=== PATIENT | male | born 1950 | race Caucasian/White ===

== ENCOUNTER → 2017-07-29 11:29 | Outpatient (CLI) | payer MEDICARE, OTHER, SELFPAY ==
[2017-07-29 13:23] LABS: Albumin 4.7 g/dL (3.5-5.0); Alkaline Phosphatase 88 U/L (38-126); Estimated Glomerular Filt Rate > 60.0 mL/min (>60); HEMOLYSIS < 15 (0-50)
[2017-07-29 15:22] LABS: Alanine Aminotransferase 74 IU/L (21-72); Albumin Globulin Ratio 1.4 (1.0-2.8); Aspartate Aminotransferase 52 IU/L (17-59); BUN Creatinine Ratio 31.1 (6-22); Blood Urea Nitrogen 28 mg/dL (9-20); Calcium 9.7 mg/dL (8.4-10.2); Carbon Dioxide 33 mmol/L (22-32); Chloride 96 mmol/L (98-107); Cholesterol 208 mg/dL (140-199); Globulin 3.3 g/dL (1.7-4.1); Glucose 95 mg/dL (80-110); HDL Cholesterol 42 mg/dL (40-60); LDL Cholesterol Calculated 103 mg/dL (<100); Sodium 141 mmol/L (137-145); Triglycerides 317 mg/dL (35-150)
== END ==
PROVIDERS: PCP Internal Medicine; Visit Provider Internal Medicine
DX: E78.00 Pure hypercholesterolemia, unspecified (principal); I10 Essential (primary) hypertension; K75.81 Nonalcoholic steatohepatitis (NASH); D64.9 Anemia, unspecified
CPT/HCPCS: 36415; 80053; 80061

== ENCOUNTER → 2017-08-02 09:05 | Outpatient (CLI) | payer MEDICARE, OTHER, SELFPAY | PROVIDERS: PCP Internal Medicine; Visit Provider Urology | DX: R97.20 Elevated prostate specific antigen [PSA] (principal) | CPT/HCPCS: 36415; 84153 ==

== ENCOUNTER → 2017-09-09 14:58 | Outpatient (CLI) | payer MEDICARE, OTHER, SELFPAY ==
--- NOTE | 2017-09-09 | DI.MRI.S_ITS ---
PROCEDURE: MR HAND LT WO CON INDICATIONS: Left finger pain of the 5th digit. TECHNIQUE: Noncontrast coronal T1 spin echo and T2 fast spin echo with fat saturation, axial proton density fast spin echo and T2 fast spin echo with fat saturation, sagittal T1 spin echo and STIR through the hand and fingers. COMPARISON: None. FINDINGS: Image quality: There is inhomogeneous fat saturation. Bones: There is joint space narrowing at the 5th proximal interphalangeal joint with mild subchondral edema and cystic change. There is slight ulnar sided and dorsal deviation. There is associated attenuation of the ulnar collateral ligament and thickening of the radial collateral ligament. No complete disruption. The volar plate appears grossly intact. No definite bone contusions or fractures. Soft tissues: The visualized flexor and extensor tendons appear intact. There is mild peritendinous edema along the flexor tendons including within the carpal tunnel. No definite thickening of the overlying retinaculum. Visualized muscles demonstrate normal bulk and internal signal. No intramuscular masses identified. No ganglion cysts. IMPRESSION: 1. Attenuated appearance of the ulnar collateral ligament at the 5th proximal interphalangeal joint and thickening of the radial collateral ligament. Findings likely represent sequelae of prior trauma or postsurgical change. There is associated slight ulnar sided and dorsal deviation. 2. 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 3. Mild peritendinous edema along the flexor tendons compatible with peritendinitis including within the carpal tunnel. Recommend correlation clinically for possible carpal tunnel syndrome. Dictated by: Jarrod Pearson M.D. on 09/10/2017 at 17:17 Approved by: Jarrod Pearson M.D. on 09/10/2017 at 17:26
== END ==
PROVIDERS: PCP Internal Medicine; Visit Provider Orthopaedic Surgery
DX: M19.042 Primary osteoarthritis, left hand (principal); M79.645 Pain in left finger(s)
CPT/HCPCS: 73218

== ENCOUNTER → 2018-02-10 09:26 | Outpatient (CLI) | payer MEDICARE, OTHER, SELFPAY ==
[2018-02-10 11:10] LABS: Alanine Aminotransferase 49 IU/L (21-72); Albumin 4.7 g/dL (3.5-5.0); Albumin Globulin Ratio 1.7 (1.0-2.8); Alkaline Phosphatase 67 U/L (38-126); Aspartate Aminotransferase 46 IU/L (17-59); BUN Creatinine Ratio 14.4 (6-22); Blood Urea Nitrogen 13 mg/dL (9-20); Calcium 9.5 mg/dL (8.4-10.2); Carbon Dioxide 29 mmol/L (22-32); Chloride 101 mmol/L (98-107); Cholesterol 189 mg/dL (140-199); Estimated Glomerular Filt Rate > 60.0 mL/min (>60); Globulin 2.7 g/dL (1.7-4.1); Glucose 98 mg/dL (80-110); HDL Cholesterol 41 mg/dL (40-60); HEMOLYSIS < 15 (0-50); LDL Cholesterol Calculated 110 mg/dL (<100); Sodium 143 mmol/L (137-145); Total Protein 7.4 g/dL (6.3-8.2); Triglycerides 192 mg/dL (35-150)
[2018-02-10 11:12] LABS: Potassium 5.9 mmol/L (3.4-5.1)
== END ==
PROVIDERS: PCP Internal Medicine; Visit Provider Internal Medicine
DX: E78.00 Pure hypercholesterolemia, unspecified (principal); K75.81 Nonalcoholic steatohepatitis (NASH)
CPT/HCPCS: 36415; 80053; 80061

== ENCOUNTER → 2018-04-08 13:25 | Outpatient (CLI) | payer MEDICARE, OTHER, SELFPAY ==
[2018-04-08 14:35] LABS: Blood Urea Nitrogen 13 mg/dL (9-20); Calcium 9.1 mg/dL (8.4-10.2); Carbon Dioxide 29 mmol/L (22-32); Chloride 102 mmol/L (98-107); Estimated Glomerular Filt Rate > 60.0 mL/min (>60); Glucose 89 mg/dL (80-110); HEMOLYSIS < 15 (0-50); Potassium 4.2 mmol/L (3.4-5.1); Sodium 139 mmol/L (137-145)
== END ==
PROVIDERS: PCP Internal Medicine; Visit Provider Internal Medicine
DX: I10 Essential (primary) hypertension (principal)
CPT/HCPCS: 36415; 80048

== ENCOUNTER → 2018-10-03 12:39 | Outpatient (CLI) | payer MEDICARE, OTHER, SELFPAY ==
[2018-10-03 13:15] LABS: Add Manual Diff / Slide Review NO; Basophils Absolute Auto 0 /uL (0-100); Basophils Percent Auto 0.6 % (0-2); Eosinophils Absolute Auto 100 /uL (0-450); Eosinophils Percent Auto 2.5 % (2-4); Hematocrit 42.9 % (41-53); Hemoglobin 14.5 g/dL (13.5-17.5); Lymphocytes Absolute Auto 1600 /uL (1100-4500); Lymphocytes Percent Auto 26.7 % (25-40); Mean Corpuscular HGB Conc 33.9 % (30-36); Mean Corpuscular Volume 88.4 fL (80-100); Monocytes Absolute Auto 500 /uL (0-900); Monocytes Percent Auto 8.7 % (3-14); Neutrophils Absolute Auto 3600 /uL (1500-7000); Neutrophils Percent Auto 61.5 % (50-75); Platelet Count 224 X10^3/uL (150-400); Red Blood Cell Count 4.85 X10^6/uL (4.5-5.9); Red Cell Distribution Width 14.5 % (11.6-14.8); White Blood Cell Count 5.9 X10^3/uL (4.5-11.0)
[2018-10-03 13:31] LABS: Alanine Aminotransferase 40 IU/L (21-72); Albumin 4.5 g/dL (3.5-5.0); Albumin Globulin Ratio 1.4 (1.0-2.8); Alkaline Phosphatase 79 U/L (38-126); Aspartate Aminotransferase 50 IU/L (17-59); BUN Creatinine Ratio 23.3 (6-22); Blood Urea Nitrogen 21 mg/dL (9-20); Calcium 9.3 mg/dL (8.4-10.2); Carbon Dioxide 29 mmol/L (22-32); Chloride 103 mmol/L (98-107); Estimated Glomerular Filt Rate > 60.0 mL/min (>60); Globulin 3.2 g/dL (1.7-4.1); Glucose 84 mg/dL (80-110); HEMOLYSIS < 15 (0-50); Potassium 4.1 mmol/L (3.4-5.1); Sodium 143 mmol/L (137-145); Total Protein 7.7 g/dL (6.3-8.2)
== END ==
PROVIDERS: PCP Internal Medicine; Visit Provider Internal Medicine
DX: K75.81 Nonalcoholic steatohepatitis (NASH) (principal); I10 Essential (primary) hypertension; G47.33 Obstructive sleep apnea (adult) (pediatric)
CPT/HCPCS: 36415; 80053; 85025

== ENCOUNTER → 2018-10-10 10:56 | Outpatient (CLI) | payer MEDICARE, OTHER, SELFPAY ==
--- NOTE | 2018-10-10 | DI.RAD.S_ITS ---
PROCEDURE: XR CERVICAL SPINE 2V OR 3V INDICATIONS: SPINAL PAIN TECHNIQUE: 3 view(s) of the cervical spine were acquired. COMPARISON: None. FINDINGS: Bones: No fractures or dislocations to the C7 level. The lateral masses of C1 appear intact on the odontoid view. No suspicious bony lesions. Loss of lordosis which could be related to muscle spasm, rigidity or simply positional. Grade 1 retrolisthesis C3-C4. Moderate C4-C5, C5-C6 and C6-C7 disc degeneration. Mild multilevel uncovertebral hypertrophy and mild mid and lower cervical spine bilateral facet joint arthropathy Soft tissues: No prevertebral soft tissue swelling. IMPRESSION: Loss of lordosis and multilevel degenerative change. Dictated by: Dez Dolan [facility] Interpreted: Jeancarlos Stevenson MD on 10/10/2018 at 11:40 Approved by: Jeancarlos Stevenson M.D. on 10/10/2018 at 14:33
--- NOTE | 2018-10-10 | DI.RAD.S_ITS ---
PROCEDURE: XR THORACIC SPINE 2V INDICATIONS: SPINAL PAIN TECHNIQUE: 3 views of the thoracic spine were acquired. COMPARISON: [facility], , CHEST 2VW, 10/28/2012, 15:07. FINDINGS: Bones: Multilevel mild lower thoracic spine compression fractures are present. Moderate multilevel disc degeneration, most notably involving the mid and inferior thoracic spine. Bones are diffusely osteopenic.. No suspicious bony lesions. 12 pairs of ribs are noted, and appear intact where visualized. Soft tissues: No paravertebral stripe thickening. IMPRESSION: 1. Vestigial ribs noted at the T12 level. 2. Mild multilevel lower thoracic spine compression fractures which are chronic and appear similar to prior lateral chest radiograph dated 10/28/12. 3. Multilevel disc degeneration and diffuse osteopenia. Dictated by: Dez Dolan [facility] Interpreted: Jeancarlos Stevenson MD on 10/10/2018 at 11:43 Approved by: Jeancarlos Stevenson M.D. on 10/10/2018 at 14:33
--- NOTE | 2018-10-10 | DI.RAD.S_ITS ---
PROCEDURE: XR LUMBAR SPINE 2-3V INDICATIONS: SPINAL PAIN TECHNIQUE: 3 views of the lumbar spine were acquired. COMPARISON: [facility], CR, SPINE LUMB MIN 4VW, 09/26/2010, 13:35. FINDINGS: Bones: 5 [id number] vertebrae are present. Mild levoscoliosis most notably and severe at the L3-L4 level. Moderate lower lumbar spine facet joint arthropathy. Trace multilevel retrolisthesis. Multilevel disc degeneration,. No vertebral body compression fractures. No suspicious bony lesions. Soft tissues: Overlying bowel gas pattern is normal. No suspicious soft tissue calcifications. IMPRESSION: Degenerative disc and facet disease. Dictated by: Dez LOPEZ Interpreted: Jeancarlos Stevenson MD on 10/10/2018 at 11:48 Approved by: Jeancarlos Stevenson M.D. on 10/10/2018 at 14:33
== END ==
PROVIDERS: PCP Internal Medicine; Visit Provider Chiropractor
DX: S13.101A Dislocation of unspecified cervical vertebrae, initial encounter (principal); S23.101A Dislocation of unspecified thoracic vertebra, initial encounter; S33.101A Dislocation of unspecified lumbar vertebra, initial encounter; M54.6 Pain in thoracic spine
CPT/HCPCS: 72040; 72070; 72100

== ENCOUNTER → 2019-01-14 10:08 | Outpatient (CLI) | payer MEDICARE, OTHER, SELFPAY ==
--- NOTE | 2019-01-14 | DI.RAD.S_ITS ---
PROCEDURE: FL BARIUM SWALLOW INDICATIONS: DYSPHAGIA COMPARISON: None. FINDINGS: Function: There is normal esophageal peristalsis. No elicited gastroesophageal reflux. There is normal transit of a calibrated barium tablet through the esophagus into the stomach. Morphology: Air-contrast images demonstrate normal mucosal morphology. Single contrast views show no esophageal strictures, extrinsic mass effects, or diverticula. Limited images of the stomach demonstrate normal appearance. IMPRESSION: Normal examination. Dictated by: Jeancarlos Stevenson M.D. on 01/14/2019 at 11:59 Approved by: Jeancarlos Stevenson M.D. on 01/14/2019 at 11:59
== END ==
PROVIDERS: PCP Internal Medicine; Referring Provider Orthopaedic Surgery; Visit Provider Internal Medicine
DX: M81.0 Age-related osteoporosis without current pathological fracture (principal); R13.10 Dysphagia, unspecified; M80.00XA Age-related osteoporosis with current pathological fracture, unspecified site, initial encounter for fracture
CPT/HCPCS: 74220; 77080; 77081

== ENCOUNTER → 2019-04-10 11:37 | Outpatient (CLI) | payer MEDICARE, OTHER, SELFPAY ==
[2019-04-10 13:17] LABS: Alanine Aminotransferase 38 IU/L (<50); Albumin 4.5 g/dL (3.5-5.0); Albumin Globulin Ratio 1.4 (1.0-2.8); Alkaline Phosphatase 66 U/L (38-126); Aspartate Aminotransferase 47 IU/L (17-59); Bilirubin Total 0.9 mg/dL (0.2-1.3); Blood Urea Nitrogen 15 mg/dL (9-20); Calcium 9.2 mg/dL (8.4-10.2); Carbon Dioxide 28 mmol/L (22-32); Chloride 104 mmol/L (98-107); Cholesterol 167 mg/dL (140-199); Estimated Glomerular Filt Rate > 60.0 mL/min (>60); Globulin 3.2 g/dL (1.7-4.1); Glucose 88 mg/dL (80-110); HDL Cholesterol 36 mg/dL (40-60); HEMOLYSIS < 15 (0-50); LDL Cholesterol Calculated 93 mg/dL (<100); Potassium 3.9 mmol/L (3.4-5.1); Sodium 141 mmol/L (137-145); Total Protein 7.7 g/dL (6.3-8.2); Triglycerides 188 mg/dL (35-150)
== END ==
PROVIDERS: PCP Internal Medicine; Referring Provider Internal Medicine; Visit Provider Internal Medicine
DX: I10 Essential (primary) hypertension (principal); E78.00 Pure hypercholesterolemia, unspecified; K75.81 Nonalcoholic steatohepatitis (NASH)
CPT/HCPCS: 36415; 80053; 80061

== ENCOUNTER → 2019-10-24 08:30 | Outpatient (CLI) | payer MEDICARE, OTHER, SELFPAY ==
[2019-10-24 10:37] LABS: Alanine Aminotransferase 48 IU/L (<50); Albumin 4.6 g/dL (3.5-5.0); Albumin Globulin Ratio 1.4 (1.0-2.8); Alkaline Phosphatase 80 U/L (38-126); Aspartate Aminotransferase 49 IU/L (17-59); Bilirubin Total 0.8 mg/dL (0.2-1.3); Bilirubin Unconjugated 0.8 mg/dL (0.0-1.1); Globulin 3.4 g/dL (1.7-4.1); HEMOLYSIS < 15 (0-50)
== END ==
PROVIDERS: PCP Internal Medicine; Referring Provider Internal Medicine; Visit Provider Internal Medicine
DX: K75.81 Nonalcoholic steatohepatitis (NASH) (principal)
CPT/HCPCS: 36415; 80076

== ENCOUNTER → 2020-04-20 14:22 | Outpatient (CLI) | payer MEDICARE, OTHER, SELFPAY ==
[2020-04-20 15:58] LABS: Add Manual Diff / Slide Review NO; Basophils Absolute Auto 0 /uL (0-100); Basophils Percent Auto 0.3 % (0-2); Eosinophils Absolute Auto 200 /uL (0-450); Eosinophils Percent Auto 1.9 % (2-4); Hematocrit 45.4 % (41-53); Hemoglobin 15.2 g/dL (13.5-17.5); Lymphocytes Absolute Auto 1900 /uL (1100-4500); Lymphocytes Percent Auto 17.1 % (25-40); Mean Corpuscular HGB Conc 33.5 % (30-36); Mean Corpuscular Hemoglobin 29.6 PG (26-34); Mean Corpuscular Volume 88.4 fL (80-100); Monocytes Absolute Auto 800 /uL (0-900); Monocytes Percent Auto 6.8 % (3-14); Neutrophils Absolute Auto 8200 /uL (1500-7000); Neutrophils Percent Auto 73.9 % (50-75); Platelet Count 217 X10^3/uL (150-400); Red Blood Cell Count 5.14 X10^6/uL (4.5-5.9); Red Cell Distribution Width 14.1 % (11.6-14.8); White Blood Cell Count 11.1 X10^3/uL (4.5-11.0)
[2020-04-20 16:20] LABS: Alanine Aminotransferase 41 IU/L (<50); Albumin 4.6 g/dL (3.5-5.0); Albumin Globulin Ratio 1.5 (1.0-2.8); Alkaline Phosphatase 66 U/L (38-126); Aspartate Aminotransferase 43 IU/L (17-59); BUN Creatinine Ratio 16.3 (6-22); Blood Urea Nitrogen 16 mg/dL (9-20); Calcium 9.2 mg/dL (8.4-10.2); Carbon Dioxide 30 mmol/L (22-32); Chloride 104 mmol/L (98-107); Cholesterol 206 mg/dL (140-199); Estimated Glomerular Filt Rate > 60.0 mL/min (>60); Glucose 85 mg/dL (80-110); HDL Cholesterol 42 mg/dL (40-60); HEMOLYSIS < 15 (0-50); LDL Cholesterol Calculated 128 mg/dL (<100); Potassium 3.9 mmol/L (3.4-5.1); Sodium 139 mmol/L (137-145); Total Protein 7.6 g/dL (6.3-8.2); Triglycerides 178 mg/dL (35-150)
== END ==
PROVIDERS: PCP Internal Medicine; Referring Provider Internal Medicine; Visit Provider Internal Medicine
DX: I10 Essential (primary) hypertension (principal); E78.00 Pure hypercholesterolemia, unspecified; G47.33 Obstructive sleep apnea (adult) (pediatric); K75.81 Nonalcoholic steatohepatitis (NASH)
CPT/HCPCS: 36415; 80053; 80061; 85025

== ENCOUNTER → 2020-08-03 11:45 | Outpatient (CLI) | payer MEDICARE, OTHER, SELFPAY ==
[2020-08-04 08:09] LABS: PSA Free % 23.8 % (.); PSA, Total 5.3 ng/mL (0.0-4.0)
== END ==
PROVIDERS: PCP Internal Medicine; Referring Provider Urology; Visit Provider Urology
DX: R97.20 Elevated prostate specific antigen [PSA] (principal)
CPT/HCPCS: 36415; 84153; 84154

== ENCOUNTER → 2020-11-18 15:03 | Outpatient (CLI) | payer MEDICARE, OTHER, SELFPAY ==
[2020-11-18 17:13] LABS: COVID19 -Nasal RAPID Negative (Negative)
== END ==
PROVIDERS: PCP Internal Medicine; Visit Provider Surgery
DX: Z20.822 Contact with and (suspected) exposure to COVID-19 (principal); Z01.812 Encounter for preprocedural laboratory examination
CPT/HCPCS: 87635; C9803

== ENCOUNTER 2020-11-21 09:00 | Day surgery (SDC) | payer MEDICARE, OTHER, SELFPAY ==
--- NOTE | 2020-11-21 | PATH_ITS ---
[facility] Accession Number: [id number] . 01 Material submitted: . PART A: colon - DESCENDING COLON POLYP PART B: rectum - RECTAL POLYP . 02 Diagnosis: A. Descending Colon Polyp: Tubular adenoma. . B. Rectal Polyp: Portions of hyperplastic polyp x 3. MRV 11/24/2020 1357 Local . 02 Electronically signed: . Jacquelyn Tay MD, Pathologist NPI- [id number] . 01 Gross description: . Part A: DESCENDING COLON POLYP: Received in formalin is 1 fragment(s) of early, soft tissue measuring 0.3 x 0.2 x 0.1 cm submitted entirely in 1 cassette(s) Part B: RECTAL POLYP: Received in formalin are 3 fragment(s) of early, soft tissue measuring 0.5 x 0.2 x 0.1 cm to 0.1 x 0.1 x 0.1 cm submitted entirely in 1 cassette(s) /MARIA M 11/22/2020 0422 Local . 02 Pathologist provided ICD-10: Z12.11, Z86.010 . 02 CPT . 489174, 170027 Performed at: 01 [facility] [address] [facility] [place] [facility] [place], [place], [place] [id number] MD Jarrod Lua MD Phone: [phone] Performed at: [facility] [address] [place], [place] [id number] MD Annemarie Gonzalez MD Phone: [phone]
[2020-11-21 09:41] VITALS: BP 140/80; PULSE 59; RESP 16; TEMP 36.2; O2SAT 99; BMI 28.9
[2020-11-21] MEDS: LACTATED RINGERS 1,000 ML 42 ML IV (09:51)
--- NOTE | 2020-11-21 10:00 | PM.HP.1 ---
History of Present Illness History of Present Illness Date Patient Seen: 11/21/20 Time Patient Seen: 10:00 Chief complaint: SDC Narrative: The patient presents for colorectal sreening. Previous colonoscopy 5 years ago demonstrated benign polyps. No personal or family history of colon cancer. On further history denies any recent gastrointestinal symptoms. No nausea, vomiting, abdominal pain, loss of appetite, unexplained weight loss, change in bowel habits, diarrhea, constipation, melena, hematochezia, or bright red blood per rectum. Patient History Medical History Central sleep apnea Excessive daytime sleepiness Hyperlipidemia Hypertension Obstructive sleep apnea of adult Snoring Family & Social History Social History: household members spouse Tobacco & Substance use: Smoking Status Never smoker alcohol intake frequency holiday/special occasion Substance Use Type does not use Meds Home Medications and Allergies Home Medications Medication Instructions Recorded Confirmed Type metoprolol succinate 50 mg 50 mg OR Q DAY #0 10/25/15 11/21/20 History tablet,extended release 24 hr (Toprol XL) rosuvastatin 10 mg tablet (Crestor) 5 mg OR HS #0 10/25/15 11/21/20 History Respironics Dreamstation CPAP #1 ea 10/01/18 05/24/20 History aspirin 81 mg tablet,delayed 81 mg PO DAILY 05/24/20 11/21/20 History release (Adult Low Dose Aspirin) tadalafil 5 mg tablet (Cialis) 5 mg PO DAILY 05/24/20 11/21/20 History sodium,potassium,mag sulfates 17.5 See Rx Instructions PO .COMPLEX 10/20/20 11/21/20 Rx gram-3.13 gram-1.6 gram oral soln #354 ml (Suprep Bowel Prep Kit) Allergies Allergy/AdvReac Type Severity Reaction Status Date / Time morphine [MORPHINE] AdvReac Intermediate Verified 11/21/20 09:49 Exam Vital Signs (past 8 hours): - 11/21/20 09:41 Temperature 97.1 F L Pulse Rate 59 L Respiratory Rate 16 Blood Pressure 140/80 Pulse Oximetry 99 Oxygen Delivery Method Room Air Narrative Exam Narrative: Constitutional-he is oriented to person, place and time. No apparent distress Cardiovascular- regular rate, no peripheral edema Pulmonary-unlabored respiratory effort, no audible wheezing Abdominal-soft, non-tender, non-distended Musculoskeletal-no cyanosis or clubbing Neurological-nonfocal, normal strength throughout, Skin-warm and dry Assessment & Plan Assessment and plan (1) Personal history of colonic polyps: Status: Acute Assessment & Plan narrative: The patient requires colorectal screening and colonoscopy is recommended. Technical details were discussed. Risks, benefits, alternatives explained. Risks including but not limited to myocardial infarction, aspiration, bleeding, pain, missed lesion, incomplete examination, need for further radiographic studies, colonic perforation, and need for major abdominal surgery were discussed. All questions were answered to their satisfaction, and they are in agreement with this plan. Time Spent With Patient Critical Care time: I spent a total of [] minutes of critical care time on this patient's care today; this time is exclusive of procedural time.
[2020-11-21] MEDS: fentaNYL 250 MCG/5 ML INJ IV (10:12)
[2020-11-21] MEDS: MIDAZOLAM 5 MG/5 ML VIAL IV (10:12)
--- NOTE | 2020-11-21 10:30 | P.OP.COLON_ITS ---
Operative Date/Time/Diagnoses Date of procedure: 11/21/20 Time of procedure: 10:30 Pre-op diagnosis: Personal history of colonic polyps Post-op diagnosis: same Procedure & Clinicians Study performed: Colonoscopy Same procedure as scheduled: Yes Indications: Personal history of colonic polyps Surgeon: Asim Griffin Procedure Notes Procedure in detail: Medications: Conscious sedation using 5mg IV midazolam and 150mcg IV of fentanyl The history and physical was performed/updated and the patient is ASA class is 2. The procedure was discussed in detail with the patient. Potential risks complications including infection, bleeding, missed diagnosis, perforation, need for surgery, and were explained. Their questions were answered and informed consent was obtained. Patient was brought to the procedure room and placed standard monitoring equipment. The patient's vital signs were monitored continuously throughout the entire procedure. Prior to starting time-out was performed. The patient was placed in the left lateral recumbent position. Procedural sedation was administered. Examination began with a thorough inspection of the perianal area there was no evidence of fissures, fistulae, external hemorrhoids or cutaneous malignancy. The colonoscopy scope was then placed into the anal canal and was advanced to the cecum, which was identified by the ileocecal valve, the appendiceal orifice and the confluence of the taenia. The scope was then slowly withdrawn examining colon thoroughly in all directions, irrigating it of any residual stool. FINDINGS 1.decending colonic polyp 1 cm removed biopsy forceps 2.rectal polyp 5 mm removed with biopsy forceps The patient tolerated the procedure well. They will be discharged once criteria are met. The prep was of good/excellent quality. The withdrawl time was 9 min utes. The sedation time was 30 minutes. Specimen(s): other (descending, rectal ) Complications: none Impression: Colonic polyps Post-procedure Recommendations: Colonoscopy in 5 years Disposition: same day surgery
[2020-11-21 10:32] VITALS: BP 103/59; PULSE 59; RESP 12; TEMP 36.4; O2SAT 98
[2020-11-21 10:37] VITALS: BP 106/56; PULSE 58; RESP 14; O2SAT 96
[2020-11-21 10:42] VITALS: BP 112/61; PULSE 60; RESP 14; O2SAT 95
[2020-11-21 10:49] VITALS: BP 99/62; PULSE 58; RESP 13; O2SAT 95
[2020-11-21 10:54] VITALS: BP 128/71; PULSE 58; RESP 14; TEMP 36.5; O2SAT 98
== END 2020-11-21 11:07 | disposition home or self-care (01) ==
PROVIDERS: PCP Internal Medicine; Referring Provider Surgery; Visit Provider Surgery
PROC: 0DJD8ZZ Inspection of Lower Intestinal Tract, Via Natural or Artificial Opening Endoscopic (ICD-10-PCS; CPT 45378; principal; 2020-11-21 10:00)
DX: Z12.11 Encounter for screening for malignant neoplasm of colon (principal); Z86.010 Personal history of colon polyps; E78.5 Hyperlipidemia, unspecified; I10 Essential (primary) hypertension; G47.33 Obstructive sleep apnea (adult) (pediatric); D12.4 Benign neoplasm of descending colon; K62.1 Rectal polyp
CPT/HCPCS: 45380; 99152; 99153; J2250; J3010

== ENCOUNTER → 2021-05-21 13:48 | Outpatient (CLI) | payer MEDICARE, OTHER, SELFPAY ==
--- NOTE | 2021-05-21 13:50 | DI.RAD.S_ITS ---
PROCEDURE: XR FOOT LT MIN 3V INDICATIONS: Foot pain TECHNIQUE: 3 views of the foot were acquired. COMPARISON: None. FINDINGS: Bones: No fractures or dislocations. No suspicious bony lesions. Soft tissues: No tibiotalar joint effusion. Achilles tendon appears normal. IMPRESSION: Unremarkable left foot radiographs Approved by: Gary Khan M.D. on 05/21/2021 at 14:19
== END ==
PROVIDERS: PCP Internal Medicine; Referring Provider Physician Assistant; Visit Provider Physician Assistant
DX: M79.672 Pain in left foot (principal)
CPT/HCPCS: 73630

== ENCOUNTER 2022-05-09 20:39 | Emergency (ER) | payer MEDICARE, OTHER, SELFPAY ==
[2022-05-09 20:59] VITALS: BP 155/74; PULSE 74; RESP 16; TEMP 37.1; O2SAT 98; BMI 28.0
--- NOTE | 2022-05-09 21:14 | DI.RAD.S_ITS ---
PROCEDURE: XR HAND LT MIN 3V INDICATIONS: pain, swelling, question foreign body TECHNIQUE: The views of the left hand acquired. COMPARISON: None. FINDINGS: Bones: No fractures or dislocations. There is moderate degeneration at the 5th proximal interphalangeal joint. Carpal bones are normally aligned. No suspicious bony lesions. Soft tissues: There is a punctate density within the soft tissues of the 1st digit distally suggestive of a foreign body. Elsewhere, no other radiopaque foreign bodies identified. IMPRESSION: 1. Punctate density in the distal 1st digit suggestive of a punctate foreign body. 2. No additional radiopaque foreign bodies identified. 3. Moderate degeneration at the 5th PIP joint. Dictated by: Jarrod Pearson M.D. on 05/09/2022 at 22:39 Approved by: Jarrod Pearson M.D. on 05/09/2022 at 22:41
[2022-05-09 22:17] VITALS: BP 140/83; PULSE 74; RESP 17; TEMP 36.8; O2SAT 97
--- NOTE | 2022-05-10 01:15 | ED_ITS ---
HPI - Extremity Problem General Chief complaint: Extremity Problem,Nontraumatic Stated complaint: lt hand swelling, possible FB Time Seen by Provider: 05/09/22 21:14 Source: patient Mode of arrival: Ambulatory History of Present Illness HPI Narrative: 72-year-old male with hypertension and hyperlipidemia presents with a chief complaint of pain and swelling of the palm of his left hand and swelling of his left middle finger. About 3 weeks ago he had a puncture wound on the palmar aspect of his hand with a shard of glass that he was able to remove. He thought nothing of it until a few days later when he noticed some swelling on the palmar surface and finger. He presented to his primary care office and was given a shot of Rocephin followed by a week of Keflex. He had a complete resolution of symptoms until the past 24 hours or so when he started developing some pain, redness and swelling on the palmar aspect of his left hand overlying the same injury site. He presents tonight with some minimal swelling to his left middle finger and some pain. He is able to nearly make a fist but states it is starting to behave like it did last time when the infection began to present. He denies systemic complaints such as dizziness, weakness or lightheadedness. He has no fever, chills nor nausea or vomiting Related Data Home Medications Medication Instructions Recorded Confirmed metoprolol succinate 50 mg 50 mg OR Q DAY ##0 10/25/15 05/03/22 tablet,extended release 24 hr (Toprol XL) rosuvastatin 10 mg tablet (Crestor) 5 mg OR HS ##0 10/25/15 05/03/22 Respironics Dreamstation CPAP #1 ea 10/01/18 05/03/22 aspirin 81 mg tablet,delayed 81 mg PO DAILY 05/24/20 05/03/22 release (Adult Low Dose Aspirin) tadalafil 5 mg tablet (Cialis) 5 mg PO DAILY 05/24/20 05/03/22 Previous Rx's Medication Instructions Recorded doxycycline hyclate 100 mg tablet 100 mg PO BID #20 tabs 05/10/22 Allergies Allergy/AdvReac Type Severity Reaction Status Date / Time morphine [MORPHINE] AdvReac Intermediate Verified 05/03/22 14:52 Review of Systems Review of Systems Narrative: GENERAL: Denies chills, fatigue, malaise, fever, sweats. HEENT: Denies sinus pain, ear pain, sore throat, difficulty swallowing, dizziness. RESPIRATORY: Denies dyspnea, cough, wheezing, hemoptysis, sputum. CARDIOVASCULAR: Denies chest pain, palpitations, orthopnea, edema, GASTROINTESTINAL: Denies nausea, vomiting, abdominal pain, diarrhea, constipation, melena. : Denies dysuria, frequency, incontinence, hematuria, urinary retention. MUSCULOSKELETAL: See HPI SKIN: See HPI NEUROLOGIC: Denies weakness, headache, numbness, change in speech, confusion, seizures, incoordination. PSYCHIATRIC: No concerning psychosocial issues. 12 point review of systems is negative except for those stated above Patient History Medical History Central sleep apnea Excessive daytime sleepiness Hyperlipidemia Hypertension LUGO (nonalcoholic steatohepatitis) Obstructive sleep apnea of adult Snoring Social History marital status: household members: spouse lives independently: Yes occupational status: previously employed Smoking Status: Never smoker alcohol intake: current substance use type: does not use Smoking Status: Never smoker alcohol intake frequency: a few times a week Substance Use Type: does not use Exam Narrative Exam Narrative: GENERAL: [72] year old patient appears stated age. Well-developed patient, in mild distress. HEAD: Atraumatic. Normocephalic. EYES: Pupils equal round and reactive. Extraocular motions intact. No scleral icterus. No injection or drainage. ENT: Nose without bleeding, purulent drainage. Throat without erythema, tonsillar hypertrophy or exudate. Airway patent. NECK: Trachea midline. Non tender CARDIOVASCULAR: Regular rate and rhythm without murmurs, gallops, or rubs. RESPIRATORY: Clear to auscultation. Breath sounds equal bilaterally. No wheezes, rales, or rhonchi. GASTROINTESTINAL: Abdomen soft, non-tender, nondistended. EXTREMITIES: Minimal swelling, erythema and tenderness on the palmar surface of left hand overlying the prior puncture site, over the 3rd MCP. There is some swelling on the flexor surface of the left middle finger and it is slightly held in flexion. He has very minimal if any pain upon passive extension of the finger. There is swelling but not fusiform. He does not have pain on palpation of the flexor tendon BACK: Nontender without deformity or crepitance. No flank tenderness. NEURO: AOx3. SKIN: No rash or erythema of visible areas Initial Vital Signs Initial Vital Signs: Vital Signs Temperature 98.7 F 05/09/22 20:59 Pulse Rate 74 05/09/22 20:59 Respiratory Rate 16 05/09/22 20:59 Blood Pressure 155/74 H 05/09/22 20:59 Pulse Oximetry 98 05/09/22 20:59 Oxygen Delivery Method Room Air 05/09/22 20:59 Course Orders Ordered: ED Orders 05/09/22 21:14 XR hand LT min 3V Stat Discontinued Medications Doxycycline Hyclate (Doxycycline Hyclate 100 Mg Tablet) 100 mg PO NOW ONE Stop: 05/10/22 02:13 Last Admin: 05/10/22 02:19 Dose: 100 mg Consultations Consultation #1: Discussed with Dr. Fairchild, on-call orthopedist. We have discussed the patient's recent history and physical exam as well as how he presents tonight. He does not have surgical findings at this time and given his response to antibiotics last time would prefer that I start him on a slightly more broad-spectrum, we discussed using doxycycline, and encouraged close follow-up with return precautions Vital Signs Vital signs: Vital Signs - 8 hr 05/09/22 20:59 05/09/22 22:17 05/10/22 01:16 Temperature 98.7 F 98.2 F Pulse Rate 74 74 Pulse Rate [Left Radial] 80 Respiratory Rate 16 17 Blood Pressure 155/74 H 140/83 Pulse Oximetry 98 97 Oxygen Delivery Method Room Air Room Air Discharge Plan Departure Patient Disposition: Home Clinical Impression: Cellulitis of finger of left hand Instructions: DI for Cellulitis -- Adult Activity Restrictions/Additional Instructions: *You have been diagnosed with [left hand cellulitis, possible very early flexor tenosynovitis. *What to do: *Please continue to take your regular medications as directed. [x ] New medication prescriptions sent to your pharmacy: [[facility] ] [ ] New medication written as a paper prescription [ ] No new medications given * please follow closely with Dr. Fairchild at [facility]. Please call the office later this morning, let them know that you were seen in the emergency department and we would like you seen in follow-up. I will electronically transmitted a copy of today's note *Return to Emergency Department if you should have any new, worsening or concerning symptoms, such as [fever greater than 101 F, shaking chills, worsening pain, persistent vomiting or other bothersome symptoms] Prescriptions: New doxycycline hyclate 100 mg tablet 100 mg PO BID Qty: 20 0RF No Action rosuvastatin [Crestor] 10 MG tablet 5 mg OR HS Qty: 0 metoprolol succinate [Toprol XL] 50 MG tablet extended release 24 hr 50 mg OR Q DAY Qty: 0 (DME) Respironics Dreamstation CPAP Qty: 1 Dose Instruction: As directed Patient Comments: Pressure: 12-16 cmH2O DME: [facility] Rx Instructions: As directed tadalafil [Cialis] 5 mg tablet 5 mg PO DAILY aspirin [Adult Low Dose Aspirin] 81 mg tablet,delayed release (DR/EC) 81 mg PO DAILY Referrals: Dioni Oreilly MD [Primary Care Provider] - Guillermo Fairchild MD [Physician] - Stand Alone Forms: Patient Portal/API
[2022-05-10 01:16] VITALS: PULSE 80
[2022-05-10] MEDS: DOXYCYCLINE HYCLATE 100 MG TABLET PO (02:19)
[2022-05-10 02:25] VITALS: BP 151/71; PULSE 71; RESP 16; O2SAT 98
== END 2022-05-10 02:26 | disposition home or self-care (01) ==
PROVIDERS: Emergency Provider Emergency Medicine; PCP Internal Medicine
DX: L03.012 Cellulitis of left finger (principal)
CPT/HCPCS: 73130; 99283

== ENCOUNTER 2022-05-30 14:19 | Day surgery (SDC) | payer MEDICARE, OTHER, SELFPAY ==
[2022-05-25 14:36] VITALS: BMI 28.0
[2022-05-30] VITALS (8 sets, daily range): BP systolic 123–140; BP diastolic 72–84; PULSE 76–88; RESP 15–18; TEMP 36.8–37.1; O2SAT 95–99; BMI 28.0
[2022-05-30] MEDS: LACTATED RINGERS 1,000 ML 100 ML IV ×2 (14:56→16:07)
--- NOTE | 2022-05-30 15:28 | PM.PREOP ---
Pre-operative Note Interval Note History & Physical reviewed/Exam performed by Physician: Yes Changes to H&P: No
[2022-05-30] MEDS: CEFAZOLIN 2 GM/100 ML PREMIX 100 ML IV (15:45)
--- NOTE | 2022-05-30 16:01 | SUR.OPER ---
Supine on padded OR bed, head on pillow, arms secured on padded arm boards at <90 degrees abduction, legs uncrossed, safety belt at thigh, tape over blanket over lower legs.
[2022-05-30] MEDS: BUPIVACAINE 0.25% (PF) VIAL 30 ML INJ (16:08)
--- NOTE | 2022-05-30 17:06 | P.OP_ITS ---
Operative Date/Time/Diagnoses Date of procedure: 05/30/22 Time of procedure: 17:06 Pre-op diagnosis: Left inguinal hernia Post-op diagnosis: same Procedure & Clinicians Procedure: open left inguinal repair mesh Same procedure as scheduled: Yes Indications: symptomatic reducible left inguinal hernia Surgeon: Asim Mcwilliams Yes if Unassisted: Yes Anesthesia Type: General Operative Notes Findings: moderate size left indirect hernia containing bowel. No direct floor defect Estimated Blood Loss (mL): 20 Procedure in detail: The patient was placed supine on the table and bilateral lower extremity compression devices were applied. Anesthesia was induced they were intubated with an LMA and received Ancef. A time-out was performed. They were prepped and draped in sterile fashion. The left external inguinal ring and the anterior superior iliac crest were identified and marked. 1 finger breath above the i nguinal ligament the skin was infiltrated with 0.25% bupivacaine. The skin incision was made, the subcutaneous tissues were divided with electrocautery exposing the external oblique aponeurosis which was then opened along the direction of its fibers. Using blunt dissection the internal oblique aporneurosis was from the external oblique upper leaflet. The cord was carefully dissected away from the inguinal canal adjacent to the pubic tubercle. The cord including the vas deferens, testicular bloody supply, ilioguinal and genital nerve were encircled with a [place] drain. no direct floor defect was identified.. The cremasteric fibers surrounding the cord were divided adjacent to the internal ring. The vas deferens and the testicular vessels were preserved and protected. The cord contents were carefully explored. There was a Large indirect hernia on the anterior medial aspect of the cord which was skeletonized away from the vas deferens and testicular blood supply. hernia sac was opened and contained bowel which was viable. Hernia sac was closed with Vicryl reduced into the abdomen. Given the large size of the internal ring a plug of mesh was placed into the ring and secured to the adjacent fascia using Ethibond suture. A 7x 15 cm lightweight Bard Pro Loop hernia mesh was anchored to the insertion of the rectus muscle at the pubic tubercle such that there was approximately 2 cm of tubercle overlap with Ethibond. The inferior edge of the mesh was secured to the shelving edge of the inguinal ligament using Ethibond. Interrupted 3 0 Vicryl suture was used to anchor the superior aspect of the mesh to the conjoined tendon in several places. The tails were then reapproximated loosely around the spermatic cord. The tails of the mesh were then tucked under the external oblique aponeurosis. The repair was checked for hemostasis. The wound was irrigated with sterile saline. The external oblique aponeurosis was reapproximated in a running fashion using 3 0 Vicryl. The subcutaneous tissues were reapproximated with 3 0 Vicryl skin closed with 4 0 Monocryl followed by the application of Dermabond. At the end of the operation I ensured that both testicles were within the scrotum. The sponge instrument count at the end operation was correct. The patient emerged from anesthesia was extubated and transferred to the postoperative care unit in stable condition. A total of 30 ml of of 0.25% bupivicaine was used to infiltrate the skin. Complications: none Post-operative Condition: stable Disposition: same day surgery
[2022-05-30] MEDS: OXYCODONE IR 5 MG TABLET PO (17:22)
--- NOTE | 2022-05-30 17:30 | SUR.PHASEII ---
Report given to AYLA Dupree. pt stable, alert and oriented. Pain 03/30. Oxycodone given at 5:15. No nausea. Incisions site c/d/i with dermabond
== END 2022-05-30 18:14 | disposition home or self-care (01) ==
PROVIDERS: PCP Internal Medicine; Referring Provider Surgery; Visit Provider Surgery
PROC: (CPT 49505; principal; 2022-05-30 15:15)
DX: K40.90 Unilateral inguinal hernia, without obstruction or gangrene, not specified as recurrent (principal)
CPT/HCPCS: 49505; J0690; J1100; J1170; J1885; J2405; J2704; J3010

== ENCOUNTER → 2022-07-25 09:48 | Outpatient (CLI) | payer MEDICARE, OTHER, SELFPAY ==
--- NOTE | 2022-07-25 | DI.US.S_ITS ---
PROCEDURE: US SCROTUM INDICATIONS: Testicular pain TECHNIQUE: Real-time scanning was performed of the scrotum and testicles, with image documentation. Color and pulse Doppler interrogation was performed of both testicles. COMPARISON: None. FINDINGS: Right: Testicle is normal in size at 2.5 x 3.6 x 3.5 cm, and homogenous in echotexture. Epididymis is normal in overall size and morphology. Small right hydrocele is seen. No varicoceles. Overlying scrotal skin is normal in thickness. Left: Testicle is normal in size at 2.9 x 3.8 x 2.9 cm, and homogeneous in echotexture. Epididymis is normal in overall size and morphology. Small left epididymal head cysts are seen measures up to 5 millimeter in size. Small left hydrocele is seen, no varicoceles. Overlying scrotal skin is normal in thickness. Doppler: Color and pulse Doppler demonstrate normal and symmetric arterial flow in both testicles. IMPRESSION: 1. Small hydrocele. Normal appearing bilateral testes. 2. Normal appearing right epididymis. Small left epididymal head cysts as above. Dictated by: Tacos Sanches M.D. on 07/26/2022 at 8:57 Approved by: Tacos Sanches M.D. on 07/26/2022 at 8:59
== END ==
PROVIDERS: PCP Internal Medicine; Referring Provider Urology; Visit Provider Urology
DX: N43.3 Hydrocele, unspecified (principal); N50.3 Cyst of epididymis; N50.819 Testicular pain, unspecified
CPT/HCPCS: 76870

== ENCOUNTER → 2025-01-22 16:55 | Outpatient (CLI) | payer MEDICARE, OTHER, SELFPAY ==
[2025-01-22 18:36] LABS: Prostate Specific Antigen 8.30 ng/mL (0.10-4.00)
== END ==
PROVIDERS: PCP Internal Medicine; Referring Provider Urology; Visit Provider Urology
DX: Z12.5 Encounter for screening for malignant neoplasm of prostate (principal)
CPT/HCPCS: 36415; 84153